=== PATIENT | male | born 2000 | race African-American/Black ===

== ENCOUNTER 2021-09-19 15:43 | Inpatient (IN) | payer OTHER, MEDICAID, SELFPAY ==
--- NOTE | 2021-09-19 16:22 | ED.PSYCH ---
HPI - Psych General Chief Complaint: Psychiatric Symptoms Stated Complaint: SEC 12,NON MED COMPL FOR SCHIZOPHRENIA PER EMS Source: EMS Mode of arrival: EMS Limitations: no limitations and other (Flat affect, not answering questions) History of Present Illness HPI Narrative: 21-year-old male presents via EMS for medication noncompliance and schizophrenia. Is on a Section 12 from [facility] in the community. Patient is not answering any questions at this time. MD complaint: other (Section 12 bed search from the community) Onset (ago): unknown Duration: constant History of same: Yes Context: not taking psychiatric medications Treatments prior to arrival: placed on mental health hold Related Data Home Medications Medication Instructions Recorded Confirmed No Known Home Meds 09/19/21 09/19/21 Allergies Allergy/AdvReac Type Severity Reaction Status Date / Time No Known Allergies Allergy Verified 09/19/21 16:52 Review of Systems Review of Systems: Yes Unobtainable due to mental status PMFSH Past Medical History Attestation statement: The following information was validated with the patient. Source: old records reviewed Social History Social History Advance Directives: No Advance Directives Information Provided: No Physical Exam Vital Signs: Vital Signs: Last Vital Signs Temp 98.8 F 09/19/21 17:24 Pulse 80 09/19/21 17:24 Resp 16 09/19/21 17:24 BP 136/85 09/19/21 17:24 Pulse Ox 99 09/19/21 17:24 O2 Del Method 09/19/21 17:24 BMI result Body Mass Index 28.7 Appearance: Alert. Flat affect. Eyes: Pupils equal, round and reactive to light. ENT: Pharynx normal. Neck: Normal inspection. Neck supple. CVS: Normal heart rate and rhythm. Pulses normal. Respiratory: No respiratory distress. Breath sounds normal. Abdomen: Soft and nontender. Skin: Skin warm and dry. Normal skin color. Normal skin turgor. Extremities: Gait well-balanced well coordinated. Neuro: No motor deficit. No sensory deficit. Cranial nerves 2-12 intact. Course Course Course Narrative: 21-year-old male presents via EMS for medication noncompliance, schizophrenia, on a Section 12 bed search from the community. Patient is not answering any questions, has a flat affect, and is refusing to change his clothes over. Security is at bedside at the time of my assessment. Patient does answer yes and no to some specific questions, and does not report any medical complaints at this time. Will order labs, COVID, urinalysis and SANTOS. Care team consult pending. 17:30 care team consult complete. Care team investigation into [facility] report indicates that Patient lost his sober recovery placement. Patient is homeless, is unable to care for himself is assumed to be medication compliant, with no reports of suicidal ideation. There are no specific details into what led to his loss of placement. EMS report indicates non compliance with medication, and schizophrenia. At this time patient will be physician observation, COVID test is negative. Lab values are pending. Patient refused lab values. COVID is negative. Patient is inpatient bed search. Section 12. Physician observation at this time. MDM - Psych Differential Diagnosis Differential diagnosis: Likely acute psychosis, depression and drug-induced psychotic disorder Medical Records Attestation: I reviewed the patient's medical records. Lab Data Attestation: I reviewed the patient's lab results. Labs: Lab Results 09/19/21 Range/Units 17:07 COVID-19 (ADRIANE) Negative (Negative) COVID-19 Clin Com See Note Discharge Plan Discharge Clinical Impression: Acute psychosis Patient Disposition: Still a Patient Prescriptions: No Action No Known Home Meds
[2021-09-19 16:44] VITALS: BP 155/77; PULSE 92; RESP 18; TEMP 36.7; O2SAT 98
[2021-09-19 17:24] VITALS: BP 136/85; PULSE 80; RESP 16; TEMP 37.1; O2SAT 99; BMI 28.7
[2021-09-19 17:29] LABS: COVID-19 Test Negative (Negative)
--- NOTE | 2021-09-19 20:40 | PC.NURSE ---
Patient refused labs.
[2021-09-20 06:36] VITALS: RESP 16; O2SAT 98
--- NOTE | 2021-09-20 06:41 | PC.NURSE ---
Patient slept whole evening and overnight, refused vital sign assessment, refused to provide urine sample, refused lab work, behavior non concerning at this time, isolative behavior, patient is not on any medication per record, disposition per [facility] is section 12 inpatient bed search, will continue to monitor
--- NOTE | 2021-09-20 07:23 | PC.NURSE ---
patient appears to remain asleep at present respirations are even and unlabored patient appears in no distress
--- NOTE | 2021-09-20 16:04 | PC.NURSE ---
patient had supervisor public message service call and convey to t/w they had more detailed documentation cases dropped overall tresspassing just being homeless. sepideh Pérez, phone [phone] cell [phone]
--- NOTE | 2021-09-20 16:06 | PC.NURSE ---
prior note sepideh works for [employer]....
[2021-09-20 19:00] VITALS: BP 129/71; PULSE 68; RESP 16; TEMP 36.8; O2SAT 99
[2021-09-20 19:02] VITALS: BMI 21.4
--- NOTE | 2021-09-20 22:38 | PC.ADMIT ---
Pt is a 21 year old single -Surinamese male patient admitted on 12B for psychosis. Pt is alert and confused. Covid negative, Tox screen not done due to Pt refusal to give urine sample. VSS. Pt denies SI/HI. Pt presents as labile with limited eye contact. Limited speech and delayed response. Pt is hard to engage. Pt refused to sign legals. Pt is disoriented, confused and responding to internal stimuli. Pt has a history of medication noncompliance. Admission orders obtained.
[2021-09-21 08:45] VITALS: BP 129/62; PULSE 64; TEMP 36.9
[2021-09-21 09:03] LABS: Estimated Average Glucose 100 mg/dL; Hemoglobin A1c % 5.1 %
[2021-09-21 09:04] LABS: Alanine Aminotransferase 49 U/L (0-40); Albumin Level 4.4 g/dL (3.5-5.0); Alkaline Phosphatase 51 U/L (39-117); Anion Gap 11 (12-20); Aspartate Amino Transferase 25 U/L (5-37); Bilirubin Total 0.7 mg/dL (0.0-1.0); Blood Urea Nitrogen 15 mg/dL (9-16); Calcium 9.3 mg/dL (8.4-10.2); Carbon Dioxide 27 mmol/L (22-29); Chloride 103 mmol/L (96-108); Cholesterol 235 mg/dL; Creatinine Clr Calc Pharmacy 133.8; Estimated Glomerular Filt Rate > 60; Glucose Fasting 88 mg/dL (60-99); HDL Cholesterol 41 mg/dL; LDL Cholesterol Calculated 174 mg/dl; Potassium 3.8 mmol/L (3.3-5.1); Sodium 137 mmol/L (135-145); Triglycerides 102 mg/dL
--- NOTE | 2021-09-21 09:20 | P.HPPS_ITS ---
HPI Date of Service: 09/21/21 Chief Complaint: psychosis Sources of Information: patient interviewed, chart reviewed and crisis/core team assessment reviewed HPI Subjective Notes: Harvey Warning and Conditional Voluntary Healthcare Proxy: No Guardianship: No Medical Problems Affecting Mental Status: No Narrative: 21 yo male, hx of questionable psychosis, admitted from court social services Tracie Pérez after discharge from [facility] on 09/20 due to lucy elessness. Pt had a court case this week which was dismissed (it is reported the behavioral school counselors was hesitant to let him leave) and he appears to Ms Pérez as decompensated. Pt admitted to [facility] earlier this year for property destruction, trespassing. He was sent to [facility] for assessment and treatment. He completed a psychological assessment with Leonie Landin PhD on 09/15/21 during his hearing on 08/30/[address] replaced his order with evaluations of his competence to stand trial and criminal responsibility. Abraham was prescribed antipsychotic and anxiolytic medication during his stay. Ms. Pérez reported there were no aftercare plans on discharge from [facility] and was discharged homeless and without medicine. Pt has been quiet, somewhat isolative, but visable during his admission. Pt in bed when seen. He is essentially non verbal and nods yes or no to answer questions. He does acknowledge feeling frightened-attempted to educate and reassure, however current milieu is active and loud-attempted to orient and explain this. Pt spending time in bed or very close to the nursing station-passive, quiet interaction with team today. Past Psychiatric History: IP: [facility]- 08/09/21-09/18/21spring 2021-hospitalized while at [facility] in their POD, June 2020-responded to Vistaril/Olanzapine [facility] application 07/23. Status is not clear. Hx VH, TH, SI OP: no alliance Trials: Pt denies Medical Evaluation Reviewed: Yes [facility] Narrative: Last Physical Exam 08/22/21 with no identified issues. Family History: Identical twin-schizophrenia Depression Social History: Born and raised in [place], [place] by mother Parents , father resides in [place] One identical twin who has schizophrenia, 2 sisters, 1 brother (older) Completed tenth grade. 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 Substance History: Nicotine [id number] blunts daily Alcohol-social with recent increase consumption. Trauma History: Denies Diagnostics Vital Signs (24Hr): Vital Signs - 24 hr 09/20/21 19:00 Temperature 98.2 F Pulse Rate 68 Respiratory Rate 16 Blood Pressure 129/71 Pulse Oximetry 99 Oxygen Delivery Method Room Air BMI result Body Mass Index 21.4 Labs Results: 09/21/21 08:36 Labs: Laboratory Results - last 48 hr 09/19/21 09/21/21 09/21/21 17:07 08:36 08:36 Sodium 137 Potassium 3.8 Chloride 103 Carbon Dioxide 27 Anion Gap 11 L BUN 15 Creatinine 0.83 Estim Creat Clear Calc 133.8 Estimated GFR > 60 Fasting Glucose 88 Estimat Average Glucose 100 Hemoglobin A1c % 5.1 Calcium 9.3 Total Bilirubin 0.7 AST 25 ALT 49 H Alkaline Phosphatase 51 Total Protein 7.0 Albumin 4.4 Triglycerides 102 Cholesterol 235 LDL Cholesterol, Calc 174 HDL Cholesterol 41 COVID-19 (ADRIANE) Negative COVID-19 Clin Com See Note Meds/Allergies Meds Home Medications Medication Instructions Recorded Confirmed Type No Known Home Meds 09/19/21 09/19/21 History Allergies Allergies Allergy/AdvReac Type Severity Reaction Status Date / Time No Known Allergies Allergy Verified 09/19/21 16:52 Mental Status Exam Mental Status Exam Patient Appearance: Appropriate Patient Orientation: Person Level of Consciousness: Alert Patient Behavior: Guarded, Cooperative, Passive, Suspicious, Timid, Anxious, Fearful, Avoidant, Distractible, Isolative and Good Eye Contact Mood Description: Suspicious, Withdrawn, Fearful, Anxious, Nervous and Apprehensive Affect Description: Constricted Patient Cognition Impaired: No Ability to Follow Directions: Good Speech Pattern: Clear, Spontaneous Speech, Soft-Spoken and No Speech (nods yes no, some soft spoken one word answers, OK , nope ) Memory Description: Remote Impaired and Episodic Impaired Hallucinations: None (shakes his head non and states nope ) Delusions: Paranoid Ideation Perceptual Disturbances: Depersonalization and Derealization Thought Process: Distracted and Evasive Thought Content: positive for Jeff, positive for Circumstantial, positive for Poverty of Content, positive for Preoccupation, positive for Evasive, positive for Suicidal Ideation (denies) and positive for Homicidal Ideation (denies) Depressive Symptoms: Increased Anxiety Judgement: Fair Assessment & Plan Assessment & Plan (1) Acute psychosis: Status: Acute Code(s): F23 - Brief psychotic disorder Plan 21 yo male, discharge from [facility] after being cleared by the court for eval of psychosis, and for aftercare services. Plan: Olanzapine 20 mg hs, an increase from 10 mg hs Naltrexone 50 mg a.m Melatonin 3 mg HS Collateral contacts Aftercare planning. Patient educated on: medication risk/benefits, therapeutic strategies and other Informed Consent: further education needed Reason for continued inpatient stay Substantial Risk for: rapid decompensation
[2021-09-21 09:24] LABS: Thyroid Stimulating Hormone 0.96 uIU/mL (0.32-4.0)
[2021-09-21 09:42] LABS: Folate 14.3 ng/mL (> or = 4.0); Vitamin B12 860 pg/mL (200-900)
[2021-09-21 18:00] VITALS: BP 119/78; PULSE 98; RESP 16; TEMP 36.5; O2SAT 99
[2021-09-21] MEDS: OLANZapine ODT 10 MG TAB.RAPDIS 20 MG TRANSLINGU (20:36)
[2021-09-22 08:00] VITALS: BP 103/59; PULSE 73; TEMP 36.8
--- NOTE | 2021-09-22 09:20 | HO.PSYCHPN ---
Subjective Subjective Date of Service: 09/22/21 Reason For Visit: psychosis Subjective Notes: Section 12B Healthcare Proxy: No Guardianship: No Medical Problems Affecting Mental Status: No Interim History: They told me I was coming here for an evaluation, then I could go home. Can I go now.? Abraham today is visable in the milieu. Team reports at times he appears catatonic. He is willing to meet today and is able to give some information but not a great deal. He does not present with catatonia in our meeting. He remains guarded, distant. He did accept Olanzapine 20 mg on 09/21 and it appears to have been useful and tolerated as he is calmer. He is spending a good deal of time by the nursing station, is minimally social in milieu but appears to be observant of the milieu. Discussed with pt needing to obtain more information before discharge can be considered. Pt reports he has a home and a room-mate in [place]. Medication Compliance: Yes Side effects from medications: No Attending Groups: No Review of Systems Acute medical concerns: No Medical Review of Systems: unchanged Review of Systems Reports behavioral changes Psychiatric: Reports anxiety, Reports behavioral changes, Reports paranoia, Reports homicidal ideation (denies) and Reports suicidal ideation (denies) Mental Status Exam Mental Status Exam Patient Appearance: Appropriate Patient Orientation: Person, Place, Time and Situation Level of Consciousness: Alert Patient Behavior: Guarded, Cooperative, Passive, Suspicious, Timid, Anxious, Fearful, Avoidant, Distractible, Isolative and Good Eye Contact Mood Description: Suspicious, Withdrawn, Fearful, Anxious, Nervous and Apprehensive Affect Description: Constricted Patient Cognition Impaired: No Ability to Follow Directions: Good Speech Pattern: Clear, Spontaneous Speech, Soft-Spoken and No Speech (nods yes no, some soft spoken one word answers, OK , nope ) Memory Description: Remote Impaired and Episodic Impaired Hallucinations: None (shakes his head non and states nope ) Delusions: Paranoid Ideation Perceptual Disturbances: Depersonalization and Derealization Thought Process: Distracted and Evasive Thought Content: positive for [place], positive for Circumstantial, positive for Poverty of Content, positive for Preoccupation, positive for Evasive, positive for Suicidal Ideation (denies) and positive for Homicidal Ideation (denies) Depressive Symptoms: Increased Anxiety Judgement: Fair Diagnostics Vital Signs (24Hr): Vital Signs - 24 hr 09/21/21 18:00 Temperature 97.7 F Pulse Rate 98 Respiratory Rate 16 Blood Pressure 119/78 Pulse Oximetry 99 Oxygen Delivery Method Room Air BMI result Body Mass Index 21.4 Labs Results: 09/21/21 08:36 Labs: Laboratory Results - last 48 hr 09/21/21 09/21/21 09/21/21 08:36 08:36 08:36 Sodium 137 Potassium 3.8 Chloride 103 Carbon Dioxide 27 Anion Gap 11 L BUN 15 Creatinine 0.83 Estim Creat Clear Calc 133.8 Estimated GFR > 60 Fasting Glucose 88 Estimat Average Glucose 100 Hemoglobin A1c % 5.1 Calcium 9.3 Total Bilirubin 0.7 AST 25 ALT 49 H Alkaline Phosphatase 51 Total Protein 7.0 Albumin 4.4 Triglycerides 102 Cholesterol 235 LDL Cholesterol, Calc 174 HDL Cholesterol 41 Vitamin B12 860 Folate 14.3 TSH 0.96 Medications Medications Current Medications Acetaminophen (Acetaminophen 325 Mg Tablet) 650 mg PO Q6H PRN PRN Reason: Headache/Pain Mild Scale (1-3) Al Hydroxide/Mg Hydroxide (Magnesium Hydrox/Alum Hydrox 30 Ml Oral.Susp) 30 ml PO Q6H PRN PRN Reason: Heartburn/Nausea Hydroxyzine HCl (Hydroxyzine Hcl 25 Mg Tablet) 25 mg PO Q6H PRN PRN Reason: Anxiety Magnesium Hydroxide (Milk Of Magnesia 30 Ml Oral.Susp) 30 ml PO DAILY PRN PRN Reason: Constipation Melatonin (Melatonin 3 Mg Tablet) 3 mg PO BEDTIME PRN PRN Reason: Insomnia Naltrexone HCl (Naltrexone Hcl 50 Mg Tablet) 50 mg PO DAILY [facility] Nicotine Polacrilex (Nicotine Polacrilex 2 Mg Gum) 4 mg BUCCAL Q2H PRN PRN Reason: Nicotine Cravings Olanzapine (Olanzapine Odt 10 Mg Tab.Rapdis) 20 mg TRANSLINGU BEDTIME [facility] Last Admin: 09/21/21 20:36 Dose: 20 mg Trazodone HCl (Trazodone Hcl 50 Mg Tablet) 50 mg PO BEDTIME PRN PRN Reason: Insomnia Allergies Allergies Allergy/AdvReac Type Severity Reaction Status Date / Time No Known Allergies Allergy Verified 09/19/21 16:52 Assessment & Plan Assessment & Plan (1) Acute psychosis: Status: Acute Code(s): F23 - Brief psychotic disorder Plan 09/22/21- Abraham is accepting of medications and is talking with us more, however, he remains a vague historian. Continue current regime TSH, B12, Folate on 09/25. Collateral contacts I spent minutes with the patient and/or on the patient floor today, greater than?50% of which was spent counseling/coordinating care. Patient educated on: medication risk/benefits and therapeutic strategies Informed Consent: further education needed Reason for contiued inpatient stay Substantial Risk for: rapid decompensation
[2021-09-22 18:00] VITALS: BP 143/83; PULSE 77; RESP 18; TEMP 36.7
[2021-09-23 06:00] VITALS: BP 124/68; PULSE 68; RESP 16; TEMP 36.6; O2SAT 99
--- NOTE | 2021-09-23 11:59 | P.PNPSI_ITS ---
Subjective Subjective Date of Service: 09/23/21 Reason For Visit: psychosis Subjective Notes: Section 12B Interim History: Patient was seen and discussed in rounds today. Records and plans were reviewed. He continues to be guarded but has been coming into the milieu. He is observed to be somewhat catatonic at times but today I did not observe that. He has been taking the olanzapine. No complaints. He asked about being discharged today and I talked to him at length as to the reasons why that cannot happen. Eating and sleeping adequately. No changes were made today Medication Compliance: Yes Side effects from medications: No Review of Systems Review of Systems Yes all other systems are reviewed and are negative Mental Status Exam Mental Status Exam Patient Appearance: Appropriate Patient Orientation: Person, Place, Time and Situation Level of Consciousness: Alert Patient Behavior: Guarded, Cooperative, Passive, Suspicious, Timid, Anxious, Fearful, Avoidant, Distractible, Isolative and Good Eye Contact Mood Description: Suspicious, Withdrawn, Fearful, Anxious, Nervous and Apprehensive Affect Description: Constricted Patient Cognition Impaired: No Ability to Follow Directions: Good Speech Pattern: Clear, Spontaneous Speech, Soft-Spoken and No Speech (nods yes no, some soft spoken one word answers, OK , nope ) Memory Description: Remote Impaired and Episodic Impaired Hallucinations: None (shakes his head non and states nope ) Delusions: Paranoid Ideation Perceptual Disturbances: Depersonalization and Derealization Thought Process: Distracted and Evasive Thought Content: positive for [place], positive for Circumstantial, positive for Poverty of Content, positive for Preoccupation, positive for Evasive, posit yannick for Suicidal Ideation (denies) and positive for Homicidal Ideation (denies) Depressive Symptoms: Increased Anxiety Judgement: Fair Diagnostics Vital Signs (24Hr): Vital Signs - 24 hr 09/22/21 18:00 09/23/21 06:00 Temperature 98.0 F 97.9 F Pulse Rate 77 68 Respiratory Rate 18 16 Blood Pressure 143/83 H 124/68 Pulse Oximetry 99 Oxygen Delivery Method Room Air BMI result Body Mass Index 21.4 Labs Results: 09/21/21 08:36 Medications Medications Current Medications Acetaminophen (Acetaminophen 325 Mg Tablet) 650 mg PO Q6H PRN PRN Reason: Headache/Pain Mild Scale (1-3) Al Hydroxide/Mg Hydroxide (Magnesium Hydrox/Alum Hydrox 30 Ml Oral.Susp) 30 ml PO Q6H PRN PRN Reason: Heartburn/Nausea Hydroxyzine HCl (Hydroxyzine Hcl 25 Mg Tablet) 25 mg PO Q6H PRN PRN Reason: Anxiety Magnesium Hydroxide (Milk Of Magnesia 30 Ml Oral.Susp) 30 ml PO DAILY PRN PRN Reason: Constipation Melatonin (Melatonin 3 Mg Tablet) 3 mg PO BEDTIME PRN PRN Reason: Insomnia Naltrexone HCl (Naltrexone Hcl 50 Mg Tablet) 50 mg PO DAILY [facility] Last Admin: 09/23/21 09:14 Dose: Not Given Nicotine Polacrilex (Nicotine Polacrilex 2 Mg Gum) 4 mg BUCCAL Q2H PRN PRN Reason: Nicotine Cravings Olanzapine (Olanzapine Odt 10 Mg Tab.Rapdis) 20 mg TRANSLINGU BEDTIME [facility] Last Admin: 09/22/21 20:11 Dose: Not Given Trazodone HCl (Trazodone Hcl 50 Mg Tablet) 50 mg PO BEDTIME PRN PRN Reason: Insomnia Allergies Allergies Allergy/AdvReac Type Severity Reaction Status Date / Time No Known Allergies Allergy Verified 09/19/21 16:52 Assessment & Plan Assessment & Plan (1) Acute psychosis: Status: Acute Code(s): F23 - Brief psychotic disorder Plan 09/22/21- Abraham is accepting of medications and is talking with us more, however, he remains a vague historian. Continue current regime TSH, B12, Folate on 09/25. Collateral contacts 09/23: Continue current plans and regimen I spent minutes with the patient and/or on the patient floor today, greater than?50% of which was spent counseling/coordinating care. Reason for contiued inpatient stay Substantial Risk for: med/psych decompensation
[2021-09-23 17:31] VITALS: RESP 18
[2021-09-24 06:00] VITALS: BP 128/72; PULSE 71; RESP 16; TEMP 36.7; O2SAT 99
--- NOTE | 2021-09-24 09:15 | HO.PSYCHPN ---
Subjective Subjective Date of Service: 09/24/21 Reason For Visit: psychosis Subjective Notes: Conditional Voluntary Healthcare Proxy: No Guardianship: No Medical Problems Affecting Mental Status: No Interim History: Patient was seen and discussed in rounds today. Records and plans were reviewed. He continues to be mostly isolative and guarded. He is safe. Preoccupied with discharge. He has been a little more verbal. Eating and sleeping adequately. No complaints. No changes were made today. He is not being observed as being catatonic. Medication Compliance: Yes Side effects from medications: No Review of Systems Review of Systems Yes all other systems are reviewed and are negative Mental Status Exam Mental Status Exam Narrative: In today's visit he is alert, pleasant an minimally interactive with mostly nodding. He is nonverbal. It possible response to internal stimuli but hard to assess. No suicidal ideations. No dangerous behaviors. Could not be assessed cognitively. Judgment is impaired. Diagnostics Vital Signs (24Hr): Vital Signs - 24 hr 09/23/21 17:31 09/24/21 06:00 Temperature 98.1 F Pulse Rate 71 Respiratory Rate 18 16 Blood Pressure 128/72 Pulse Oximetry 99 BMI result Body Mass Index 21.4 Labs Results: 09/21/21 08:36 Medications Medications Current Medications Acetaminophen (Acetaminophen 325 Mg Tablet) 650 mg PO Q6H PRN PRN Reason: Headache/Pain Mild Scale (1-3) Al Hydroxide/Mg Hydroxide (Magnesium Hydrox/Alum Hydrox 30 Ml Oral.Susp) 30 ml PO Q6H PRN PRN Reason: Heartburn/Nausea Hydroxyzine HCl (Hydroxyzine Hcl 25 Mg Tablet) 25 mg PO Q6H PRN PRN Reason: Anxiety Magnesium Hydroxide (Milk Of Magnesia 30 Ml Oral.Susp) 30 ml PO DAILY PRN PRN Reason: Constipation Melatonin (Melatonin 3 Mg Tablet) 3 mg PO BEDTIME PRN PRN Reason: Insomnia Naltrexone HCl (Naltrexone Hcl 50 Mg Tablet) 50 mg PO DAILY [facility] Last Admin: 09/24/21 08:32 Dose: Not Given Nicotine Polacrilex (Nicotine Polacrilex 2 Mg Gum) 4 mg BUCCAL Q2H PRN PRN Reason: Nicotine Cravings Olanzapine (Olanzapine Odt 10 Mg Tab.Rapdis) 20 mg TRANSLINGU BEDTIME [facility] Last Admin: 09/23/21 19:51 Dose: Not Given Trazodone HCl (Trazodone Hcl 50 Mg Tablet) 50 mg PO BEDTIME PRN PRN Reason: Insomnia Allergies Allergies Allergy/AdvReac Type Severity Reaction Status Date / Time No Known Allergies Allergy Verified 09/19/21 16:52 Assessment & Plan Assessment & Plan (1) Acute psychosis: Status: Acute Code(s): F23 - Brief psychotic disorder Plan 09/22/21- Abraham is accepting of medications and is talking with us more, however, he remains a vague historian. Continue current regime TSH, B12, Folate on 09/25. Collateral contacts 09/23: Continue current plans and regimen 09/24: Continue current plans and regimen I spent minutes with the patient and/or on the patient floor today, greater than?50% of which was spent counseling/coordinating care. Reason for contiued inpatient stay Substantial Risk for: med/psych decompensation
[2021-09-24 16:43] VITALS: RESP 18
[2021-09-25 06:00] VITALS: BP 121/67; PULSE 74; RESP 16; TEMP 36.4; O2SAT 99
--- NOTE | 2021-09-25 10:17 | PC.NURSE ---
Refused labs Abraham declined blood draw for his labs twice this morning, Phlebotomy is cancelling the order.
--- NOTE | 2021-09-25 16:50 | HO.PSYCHPN ---
Subjective Subjective Reason For Visit: psychosis Diagnostics Vital Signs (24Hr): Vital Signs - 24 hr 09/25/21 06:00 Temperature 97.6 F Pulse Rate 74 Respiratory Rate 16 Blood Pressure 121/67 Pulse Oximetry 99 BMI result Body Mass Index 21.4 Labs Results: 09/21/21 08:36 Medications Medications Current Medications Acetaminophen (Acetaminophen 325 Mg Tablet) 650 mg PO Q6H PRN PRN Reason: Headache/Pain Mild Scale (1-3) Al Hydroxide/Mg Hydroxide (Magnesium Hydrox/Alum Hydrox 30 Ml Oral.Susp) 30 ml PO Q6H PRN PRN Reason: Heartburn/Nausea Hydroxyzine HCl (Hydroxyzine Hcl 25 Mg Tablet) 25 mg PO Q6H PRN PRN Reason: Anxiety Magnesium Hydroxide (Milk Of Magnesia 30 Ml Oral.Susp) 30 ml PO DAILY PRN PRN Reason: Constipation Melatonin (Melatonin 3 Mg Tablet) 3 mg PO BEDTIME PRN PRN Reason: Insomnia Naltrexone HCl (Naltrexone Hcl 50 Mg Tablet) 50 mg PO DAILY [facility] Last Admin: 09/25/21 09:17 Dose: Not Given Nicotine Polacrilex (Nicotine Polacrilex 2 Mg Gum) 4 mg BUCCAL Q2H PRN PRN Reason: Nicotine Cravings Olanzapine (Olanzapine Odt 10 Mg Tab.Rapdis) 20 mg TRANSLINGU BEDTIME [facility] Last Admin: 09/24/21 22:21 Dose: Not Given Trazodone HCl (Trazodone Hcl 50 Mg Tablet) 50 mg PO BEDTIME PRN PRN Reason: Insomnia Allergies Allergies Allergy/AdvReac Type Severity Reaction Status Date / Time No Known Allergies Allergy Verified 09/19/21 16:52 Assessment & Plan Assessment & Plan (1) Acute psychosis: Status: Acute Code(s): F23 - Brief psychotic disorder Plan 09/22/21- Abraham is accepting of medications and is talking with us more, however, he remains a vague historian. Continue current regime TSH, B12, Folate on 09/25. Collateral contacts 09/23: Continue current plans and regimen 09/24: Continue current plans and regimen I spent minutes with the patient and/or on the patient floor today, greater than?50% of which was spent counseling/coordinating care.
--- NOTE | 2021-09-25 20:00 | P.PNPSI_ITS ---
Subjective Subjective Date of Service: 09/25/21 Reason For Visit: psychosis Subjective Notes: Section 7 and Section 12B Healthcare Proxy: No Guardianship: No (mother is in process of application) Medical Problems Affecting Mental Status: No Interim History: Abraham expressed anger and agitation as he was informed that we would be filing Section VII for civil commitment. He required several repetitive explanations of this process. He expressed anger and disbelief-citing that he was cleared of all charges and had no illness, took no medicines, so he wanted to leave today. He asks to return to his work, offers that he is not in need of disability and if we would allow him to leave, he would go and get money, return to the hospital and just live here and attend work every day. He is visable but isolative in milieu. He is repetitive in questioning, demonstrating a lack of understanding. He was repetitive in asking if he could just leave the unit, if he would need to live on the unit and in stating he took no medicine, would take no medicine and was not in need of medicine. Explanations were offered multiple times to assist in his understanding. Pt's mother has asked to be involved in the hearing. She is in the process of application for guardianship and would like to share her concerns with the court. She visited Abraham on the unit and offered her support to him. Pt was encouraged to be comfortable on the unit- rest, eat, drink, attend groups, utilize the counseling and nursing teams for education and support and have questions answered. He was focused on charges for crimes, asked if we would send him to snf and expressed some anxiety (one of his peers suggested he ask to go to snf). Assured several times that this hearing was for concerns regarding his health only, that he has a right to refuse medicines which he has and that we will have a court date as soon as possible to begin resolution. Abraham continues to ask repetitive questions. Team attempts to nadeen ssure him. Medication Compliance: No Side effects from medications: No Attending Groups: No Review of Systems Acute medical concerns: No Medical Review of Systems: unchanged Review of Systems Constitutional: Reports no additional constitutional complaints Reports behavioral changes, Reports confusion and Reports memory loss Psychiatric: Reports anxiety, Reports behavioral changes, Reports confusion, Reports difficulty concentrating, Reports irritability, Reports anhedonia, Reports memory loss, Reports mood swings and Reports paranoia Mental Status Exam Mental Status Exam Patient Appearance: Disheveled Patient Orientation: Person, Place and Situation (with confusion and consistent repetitive questioning) Level of Consciousness: Alert Patient Behavior: Guarded, Talkative, Hyperactive, Suspicious, Restless, Wander ing, Anxious, Fearful, Resistive to Care, Avoidant, Distractible, Confused, Isolative, Good Eye Contact, Impulsive and Pacing Mood Description: Suspicious, Withdrawn, Constricted, Fearful, Hostile, Anxious, Labile, Blunted, Angry, Apprehensive and Expansive Affect Description: Labile Patient Cognition Impaired: Yes Ability to Follow Directions: Fair Speech Pattern: Perseverating, Impoverished, Spontaneous Speech, Soft-Spoken, Rapid and Pressured Memory Description: Remote Impaired, Immediate Impaired, Penitentiary Impaired, Episodic Impaired, Recent Impaired and Working Impaired Hallucinations: None (pt denies) Delusions: Being Controlled, Paranoid Ideation and Present Perceptual Disturbances: Derealization Thought Process: Illogical, Distracted, Evasive, Slowed Thinking and Confusion Thought Content: positive for Obsessional Thoughts, positive for Circumstantial, positive for Perseveration, positive for Preoccupation, positive for Thought Blocking, positive for Slowed Thinking and positive for Evasive Depressive Symptoms: Increased Anxiety, Diff. Making Decisions, Increased Irritability, Isolating-Friends/Family, Unhappiness and Difficulty Concentrating Abnormal Motor Activity Signs and Symptoms: Agitation and Restlessness Judgement: Poor Diagnostics Vital Signs (24Hr): Vital Signs - 24 hr 09/25/21 06:00 Temperature 97.6 F Pulse Rate 74 Respiratory Rate 16 Blood Pressure 121/67 Pulse Oximetry 99 BMI result Body Mass Index 21.4 Labs Results: 09/21/21 08:36 Medications Medications Current Medications Acetaminophen (Acetaminophen 325 Mg Tablet) 650 mg PO Q6H PRN PRN Reason: Headache/Pain Mild Scale (1-3) Al Hydroxide/Mg Hydroxide (Magnesium Hydrox/Alum Hydrox 30 Ml Oral.Susp) 30 ml PO Q6H PRN PRN Reason: Heartburn/Nausea Hydroxyzine HCl (Hydroxyzine Hcl 25 Mg Tablet) 25 mg PO Q6H PRN PRN Reason: Anxiety Magnesium Hydroxide (Milk Of Magnesia 30 Ml Oral.Susp) 30 ml PO DAILY PRN PRN Reason: Constipation Melatonin (Melatonin 3 Mg Tablet) 3 mg PO BEDTIME PRN PRN Reason: Insomnia Naltrexone HCl (Naltrexone Hcl 50 Mg Tablet) 50 mg PO DAILY [facility] Last Admin: 09/25/21 09:17 Dose: Not Given Nicotine Polacrilex (Nicotine Polacrilex 2 Mg Gum) 4 mg BUCCAL Q2H PRN PRN Reason: Nicotine Cravings Olanzapine (Olanzapine Odt 10 Mg Tab.Rapdis) 20 mg TRANSLINGU BEDTIME [facility] Last Admin: 09/24/21 22:21 Dose: Not Given Trazodone HCl (Trazodone Hcl 50 Mg Tablet) 50 mg PO BEDTIME PRN PRN Reason: Insomnia Allergies Allergies Allergy/AdvReac Type Severity Reaction Status Date / Time No Known Allergies Allergy Verified 09/19/21 16:52 Assessment & Plan Assessment & Plan (1) Acute psychosis: Status: Acute Code(s): F23 - Brief psychotic disorder Plan 09/25/21- Section VII filed. Pt refuses medications. Mother is supportive of pt, and is in process of filing for guardianship Support, educate pt. Provide safety in environment. Encourage him to work with team and his assigned claims attorney throughout this process. I spent minutes with the patient and/or on the patient floor today, g reater than?50% of which was spent counseling/coordinating care. Patient educated on: diagnosis and therapeutic strategies Informed Consent: does not understand Reason for contiued inpatient stay Substantial Risk for: harm to self, harm to others, inability to function and rapid decompensation
[2021-09-26 18:00] VITALS: BP 130/64; PULSE 80; RESP 16; TEMP 36.8; O2SAT 99
--- NOTE | 2021-09-26 18:30 | P.PNPSI_ITS ---
Subjective Subjective Date of Service: 09/26/21 Reason For Visit: psychosis Subjective Notes: Section 7 Healthcare Proxy: No Guardianship: No (mother is in process) Medical Problems Affecting Mental Status: No Interim History: Intermittent agitation, team reports pt threw milk at one point, perseverative, refusing of medications. Today, pt states he would like to leave, get money, return and continue admission. States he will remain in hospital on a voluntary basis but would like to have the court not involved as he is not a criminal. Education attempted. Continues with repetitive questions-do you think I will be committed? States he met with his commonwealth attorney and is aware that his court date will be on 09/28/21. States his mother will testify to help me . Attempted to reassure pt that we are all on his side and attempting to be of help. Several meetings with Abraham to attempt reassurance, answer questions, explain that this process is not due to criminal issues but for his well-being. Pt wanting to leave, asks for housing options so he can work and not have police involved when he wants to sleep (cites an incident where police did not want him sleeping in a hallway and a garage-appears to not have insight as to why this may not be the safest place for him to sleep-discussion and explanation, verbalized understanding) Medication Compliance: No Side effects from medications: No Attending Groups: No Review of Systems Acute medical concerns: No Medical Review of Systems: unchanged Review of Systems Constitutional: Reports no additional constitutional complaints Reports behavioral changes, Reports confusion and Reports memory loss Psychiatric: Reports anxiety, Reports behavioral changes, Reports confusion, Reports difficulty concentrating, Reports irritability, Reports anhedonia, Reports memory loss, Reports mood swings and Reports paranoia Mental Status Exam Mental Status Exam Patient Appearance: Disheveled Patient Orientation: Person, Place and Situation (with confusion and consistent repetitive questioning) Level of Consciousness: Alert Patient Behavior: Guarded, Talkative, Hyperactive, Suspicious, Restless, Wandering, Anxious, Fearful, Resistive to Care, Avoidant, Distractible, Con fused, Isolative, Good Eye Contact, Impulsive and Pacing Mood Description: Suspicious, Withdrawn, Constricted, Fearful, Hostile, Anxious, Labile, Blunted, Angry, Apprehensive and Expansive Affect Description: Labile Patient Cognition Impaired: Yes Ability to Follow Directions: Fair Speech Pattern: Perseverating, Impoverished, Spontaneous Speech, Soft-Spoken, Rapid and Pressured Memory Description: Remote Impaired, Immediate Impaired, Twisting Frame Operator Impaired, Episodic Impaired, Recent Impaired and Working Impaired Hallucinations: None (pt denies) Delusions: Being Controlled, Paranoid Ideation and Present Perceptual Disturbances: Derealization Thought Process: Illogical, Distracted, Evasive, Slowed Thinking and Confusion Thought Content: positive for Obsessional Thoughts, positive for Circumstantial, positive for Perseveration, positive for Preoccupation, positive for Thought Blocking, positive for Slowed Thinking and positive for Evasive Depressive Symptoms: Increased Anxiety, Diff. Making Decisions, Increased Irritability, Isolating-Friends/Family, Unhappiness and Difficulty Concentrating Abnormal Motor Activity Signs and Symptoms: Agitation and Restlessness Judgement: Poor Diagnostics Vital Signs (24Hr): BMI result Body Mass Index 21.4 Labs Results: 09/21/21 08:36 Medications Medications Current Medications Acetaminophen (Acetaminophen 325 Mg Tablet) 650 mg PO Q6H PRN PRN Reason: Headache/Pain Mild Scale (1-3) Al Hydroxide/Mg Hydroxide (Magnesium Hydrox/Alum Hydrox 30 Ml Oral.Susp) 30 ml PO Q6H PRN PRN Reason: Heartburn/Nausea Hydroxyzine HCl (Hydroxyzine Hcl 25 Mg Tablet) 25 mg PO Q6H PRN PRN Reason: Anxiety Magnesium Hydroxide (Milk Of Magnesia 30 Ml Oral.Susp) 30 ml PO DAILY PRN PRN Reason: Constipation Melatonin (Melatonin 3 Mg Tablet) 3 mg PO BEDTIME PRN PRN Reason: Insomnia Naltrexone HCl (Naltrexone Hcl 50 Mg Tablet) 50 mg PO DAILY [facility] Last Admin: 09/26/21 09:00 Dose: Not Given Nicotine Polacrilex (Nicotine Polacrilex 2 Mg Gum) 4 mg BUCCAL Q2H PRN PRN Reason: Nicotine Cravings Olanzapine (Olanzapine Odt 10 Mg Tab.Rapdis) 20 mg TRANSLINGU BEDTIME [facility] Last Admin: 09/25/21 22:11 Dose: Not Given Trazodone HCl (Trazodone Hcl 50 Mg Tablet) 50 mg PO BEDTIME PRN PRN Reason: Insomnia Allergies Allergies Allergy/AdvReac Type Severity Reaction Status Date / Time No Known Allergies Allergy Verified 09/19/21 16:52 Assessment & Plan Assessment & Plan (1) Acute psychosis: Status: Acute Code(s): F23 - Brief psychotic disorder Plan 09/26/21- Court 09/28/21. Support, educate pt Refusing medications. I spent minutes with the patient and/or on the patient floor today, greater than?50% of which was spent counseling/coordinating care. Patient educated on: therapeutic strategies and other Informed Consent: does not understand Reason for contiued inpatient stay Substantial Risk for: harm to self, harm to others, inability to function and rapid decompensation
--- NOTE | 2021-09-26 19:00 | P.PNPSI_ITS ---
Subjective Subjective Date of Service: 09/26/21 Reason For Visit: psychosis Subjective Notes: Harvey Warning and Section 7 Healthcare Proxy: No Guardianship: No Medical Problems Affecting Mental Status: No Interim History: Patient seen and discussed with team. Patient evaluated today and upon interview he reports he is doing alright. Pt has been non-adherent on zyprexa. Says I dont like taking meds because it makes me get addicted to cigarettes. Also does not want sedating meds, I like natural sleep. Says his mood is good. Denies AH, I dont hear voices. Denies paranoia. However, appears internally preoccupied. Denies anxiety. Says I feel like im ready to go. On Section VII, court is on . 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 Currently homeless, plans to go to either a fci or to a friend's house. 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 Says he is eating well. In the milieu, patient is more visible. Says he feels safe. Medication Compliance: No Attending Groups: No Review of Systems Acute medical concerns: No Medical Review of Systems: unchanged Mental Status Exam Mental Status Exam Narrative: Alert and oriented except to situation. In casual attire, okay grooming, thin. Intermittent eye contact, inattentive. No Tics or Tremors. No abnormal involuntary movements. Calm, guarded, unreliable historian, minimizing sx, difficult to engage. Non-pressured speech, non-spontaneous, normal volume. No prolonged speech latency or dysarthria. Mood is ?good,? affect is constricted. Denies SI/SIB/HI upon inquiry. Denies A/VH, appears internally preoccupied. Thoughts are distracted. No known cognitive or memory impairment. Insight/ Judgment is poor. Diagnostics Vital Signs (24Hr): Vital Signs - 24 hr 09/26/21 18:00 Temperature 98.3 F Pulse Rate 80 Respiratory Rate 16 Blood Pressure 130/64 Pulse Oximetry 99 Oxygen Delivery Method Room Air BMI result Body Mass Index 21.4 Labs Results: 09/21/21 08:36 Medications Medications Current Medications Acetaminophen (Acetaminophen 325 Mg Tablet) 650 mg PO Q6H PRN PRN Reason: Headache/Pain Mild Scale (1-3) Al Hydroxide/Mg Hydroxide (Magnesium Hydrox/Alum Hydrox 30 Ml Oral.Susp) 30 ml PO Q6H PRN PRN Reason: Heartburn/Nausea Hydroxyzine HCl (Hydroxyzine Hcl 25 Mg Tablet) 25 mg PO Q6H PRN PRN Reason: Anxiety Magnesium Hydroxide (Milk Of Magnesia 30 Ml Oral.Susp) 30 ml PO DAILY PRN PRN Reason: Constipation Melatonin (Melatonin 3 Mg Tablet) 3 mg PO BEDTIME PRN PRN Reason: Insomnia Naltrexone HCl (Naltrexone Hcl 50 Mg Tablet) 50 mg PO DAILY [facility] Last Admin: 09/26/21 09:00 Dose: Not Given Nicotine Polacrilex (Nicotine Polacrilex 2 Mg Gum) 4 mg BUCCAL Q2H PRN PRN Reason: Nicotine Cravings Olanzapine (Olanzapine Odt 10 Mg Tab.Rapdis) 20 mg TRANSLINGU BEDTIME [facility] Last Admin: 09/25/21 22:11 Dose: Not Given Trazodone HCl (Trazodone Hcl 50 Mg Tablet) 50 mg PO BEDTIME PRN PRN Reason: Insomnia Allergies Allergies Allergy/AdvReac Type Severity Reaction Status Date / Time No Known Allergies Allergy Verified 09/19/21 16:52 Assessment & Plan Assessment & Plan (1) Acute psychosis: Status: Acute Code(s): F23 - Brief psychotic disorder Plan 09/22/21- Abraham is accepting of medications and is talking with us more, however, he remains a vague historian. ? Continue current regime ? TSH, B12, Folate on 09/25. ? Collateral contacts 09/23: Continue current plans and regimen 09/24: Continue current plans and regimen 09/25: Continue current plans and regimen 09/26: Pt refusing medications, non-adherent I spent minutes with the patient and/or on the patient floor today, greater than?50% of which was spent counseling/coordinating care. Patient educated on: diagnosis and medication risk/benefits Reason for contiued inpatient stay Substantial Risk for: inability to function, rapid decompensation and med/psych decompensation
[2021-09-27 14:48] VITALS: BP 135/69; PULSE 95; TEMP 36; O2SAT 98
--- NOTE | 2021-09-27 23:00 | HO.PSYCHPN ---
Subjective Subjective Date of Service: 09/27/21 Reason For Visit: psychosis Subjective Notes: Harvey Warning Interim History: Patient seen and discussed with team. In behavioral control. Patient evaluated today and upon interview pt states he is Doing alright. Sleep is good. Denies AH. Still doesnt want meds. Sitting in chair outside room, delayed response. He ate okay. In the milieu, patient is safe and appropriate in behavior. Says he feels safe. Medication Compliance: No Attending Groups: No Review of Systems Acute medical concerns: No Medical Review of Systems: unchanged Mental Status Exam Mental Status Exam Narrative: Alert and oriented except to situation. In casual attire, okay grooming, thin. Intermittent eye contact, inattentive. No Tics or Tremors. No abnormal involuntary movements. Calm, guarded, unreliable historian, minimizing sx, difficult to engage. Non-pressured speech, non-spontaneous, normal volume. No prolonged speech latency or dysarthria. Mood is ?alright,? affect is constricted. Denies SI/SIB/HI upon inquiry. Denies A/VH, appears internally preoccupied. Thoughts are distracted. No known cognitive or memory impairment. Insight/ Judgment is poor. Diagnostics Vital Signs (24Hr): Vital Signs - 24 hr 09/27/21 14:48 Temperature 96.8 F Pulse Rate 95 Blood Pressure 135/69 Pulse Oximetry 98 Oxygen Delivery Method Room Air BMI result Body Mass Index 21.4 Labs Results: 09/21/21 08:36 Medications Medications Current Medications Acetaminophen (Acetaminophen 325 Mg Tablet) 650 mg PO Q6H PRN PRN Reason: Headache/Pain Mild Scale (1-3) Al Hydroxide/Mg Hydroxide (Magnesium Hydrox/Alum Hydrox 30 Ml Oral.Susp) 30 ml PO Q6H PRN PRN Reason: Heartburn/Nausea Hydroxyzine HCl (Hydroxyzine Hcl 25 Mg Tablet) 25 mg PO Q6H PRN PRN Reason: Anxiety Magnesium Hydroxide (Milk Of Magnesia 30 Ml Oral.Susp) 30 ml PO DAILY PRN PRN Reason: Constipation Melatonin (Melatonin 3 Mg Tablet) 3 mg PO BEDTIME PRN PRN Reason: Insomnia Naltrexone HCl (Naltrexone Hcl 50 Mg Tablet) 50 mg PO DAILY [facility] Last Admin: 09/27/21 11:06 Dose: Not Given Nicotine Polacrilex (Nicotine Polacrilex 2 Mg Gum) 4 mg BUCCAL Q2H PRN PRN Reason: Nicotine Cravings Olanzapine (Olanzapine Odt 10 Mg Tab.Rapdis) 20 mg TRANSLINGU BEDTIME [facility] Last Admin: 09/27/21 21:53 Dose: Not Given Trazodone HCl (Trazodone Hcl 50 Mg Tablet) 50 mg PO BEDTIME PRN PRN Reason: Insomnia Allergies Allergies Allergy/AdvReac Type Severity Reaction Status Date / Time No Known Allergies Allergy Verified 09/19/21 16:52 Assessment & Plan Assessment & Plan (1) Acute psychosis: Status: Acute Code(s): F23 - Brief psychotic disorder Plan 09/22/21- Abraham is accepting of medications and is talking with us more, however, he remains a vague historian. ? Continue current regime ? TSH, B12, Folate on 09/25. ? Collateral contacts 09/23: Continue current plans and regimen 09/24: Continue current plans and regimen 09/25: Continue current plans and regimen 09/26: Pt refusing medications, non-adherent 09/27: Pt refusing medications, non-adherent, court tomorrow I spent minutes with the patient and/or on the patient floor today, greater than?50% of which was spent counseling/coordinating care. Patient educated on: therapeutic strategies Reason for contiued inpatient stay Substantial Risk for: inability to function, rapid decompensation and med/psych decompensation
--- NOTE | 2021-09-28 16:14 | P.DS_ITS ---
DS: Providers Provider Date of Service: 09/28/21 Date of admission: 09/20/21 18:39 Date of discharge: 09/28/21 Primary care physician: Unknown Physician Admitting clinician: Chelita Franks Attending physician on admission: Michele Lima Attending physician on discharge: Michele Lima Discharging clinician: Chelita Franks DS: Diagnosis Discharge Diagnosis (1) Developmental delay, moderate: Status: Acute (2) Adjustment reaction with mixed disturbance of emotions and conduct: Status: Acute DS: Medications Discharge Medications Home Medications: Home Medications Medication Instructions Recorded Confirmed No Known Home Meds 09/19/21 09/19/21 Mental Status Exam Mental Status Exam Patient Appearance: Unkempt Patient Orientation: Person, Place, Time and Situation Level of Consciousness: Alert Patient Behavior: Talkative, Cooperative, Suspicious, Resistive to Care and Good Eye Contact Mood Description: Anxious and Apprehensive Affect Description: Anxious and Apprehensive Patient Cognition Impaired: No Ability to Follow Directions: Good Speech Pattern: Spontaneous Speech Memory Description: Episodic Impaired Hallucinations: None Delusions: Not Present Thought Process: Distracted Thought Content: positive for [place], positive for Circumstantial, positive for Suicidal Ideation (denies) and positive for Homicidal Ideation (denies) Depressive Symptoms: Increased Anxiety Judgement: Fair DS: Summary Hospital Course Hospital Course: 21 yo male, sent to ER upon discharge from [facility] after a court ordered eval for capacity to stand trial for trespassing and property destruction. Pt was admitted, observed, section VII was filed, however pt was found to not meet criteria for court hearing. Pt refused all meds, had no behavioral dyscontrol while admitted and asked to discharge, refusing all referrals. Pt's mother reported pt is a twin, his twin has schizophrenia and is currently hospitalized. Pt did present with some possible symptoms of depvelopmental delay, possibly autism spectrum disorder, but declined treatment. 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 Time spent discussing smoking cessation with patient: 3 to 10 minutes Status at Discharge Functional status at discharge: independent ambulation Overall status at discharge: patient is back to baseline Time Spent with Patient Time attestation: Total time spent providing and/or coordinating discharge services: 35 Time spent: Greater than 30 minutes Discharge Plan Discharge Patient Disposition: Home, Self-Care Discharge Diagnosis: Adjustment reaction, with mixed disturbance of emotions and conduct Developmental Delay Referrals: [facility] [Provider Group] - 1 Week (walk in ) Physician,Darío Guevara [Primary Care Provider] - 1 Week Discharge Medications: No Action No Known Home Meds Discharge Orders: Discharge Order (Routine); Ordered 09/28/21 Ordered By: Chelita Franks Diet: Advance to usual diet Activity on Discharge: As tolerated Stand Alone Forms: Patient Portal Discharge page, Community Support Care Plan Goals: Mood stabilization Health Concerns: Living on the streets, when family has a home they have offered to have you live in. Refusal of all treatment interventions Refusal of assistance from your family Plan of Treatment: You have declined all referrals You have declined medications You have declined application to [facility] for services You may change your mind at any time and present for services/assistance as these are available to you. Crisis Team [phone] if needed. Call and or return if needed Assessment: non-psychotic non-suicidal Discharge Date/Time: 09/28/21 13:15
== END 2021-09-28 13:15 | disposition home or self-care (01) | DRG 755 ==
LOC: HO.ED 09-20 18:48 → HO.PM5 09-20 18:49
PROVIDERS: Nurse Practitioner Family; Admitting Provider Psychiatry & Neurology Psychiatry; Emergency Provider Emergency Medicine; Visit Provider Clinical Nurse Specialist Psychiatric/Mental Health, Adult
DX: F43.25 Adjustment disorder with mixed disturbance of emotions and conduct (principal); Z91.14 Patient's other noncompliance with medication regimen; F17.210 Nicotine dependence, cigarettes, uncomplicated; Z20.822 Contact with and (suspected) exposure to COVID-19; Z71.6 Tobacco abuse counseling
CPT/HCPCS: 36415; 80053; 80061; 82607; 82746; 83036; 84443; 87635; 99285